=== PATIENT | female | born 1980 ===

== ENCOUNTER → 2017-02-22 | Outpatient (CLI) | payer MEDICAID | LOC: FIMAGING 12:28 | PROVIDERS: ATTEND Advanced Practice Midwife | DX: E04.1 Nontoxic single thyroid nodule (principal) ==

== ENCOUNTER → 2017-03-15 | Outpatient (CLI) | payer MEDICAID ==
[~2017-03-15] MED LIST: LIDOCAINE 1% 300 MG/30 ML SDV ONE
== END ==
LOC: FIMAGING 12:10
PROVIDERS: ATTEND Advanced Practice Midwife
PROC: 0G9K3ZZ Drainage of Thyroid Gland, Percutaneous Approach (ICD-10-PCS; principal; 2017-03-15)
DX: E04.1 Nontoxic single thyroid nodule (principal)

== ENCOUNTER → 2017-09-15 | Outpatient (CLI) | payer MEDICAID | LOC: FIMAGING 14:23 | PROVIDERS: ATTEND Internal Medicine Endocrinology, Diabetes & Metabolism | DX: E04.1 Nontoxic single thyroid nodule (principal) ==